=== PATIENT | female | born 1985 | race Caucasian/White ===

== ENCOUNTER 2019-08-31 17:25 | Emergency (ER) | payer OTHER ==
--- NOTE | 2019-08-31 18:50 | RAD REPORT ---
EXAM DESCRIPTION: Joaquin Single View08/31/2019 6:40 pm CLINICAL HISTORY: Chest pain COMPARISON: none FINDINGS: The lungs appear clear of acute infiltrate. The heart is normal size IMPRESSION: No acute abnormalities displayed
[2019-08-31 19:26] LABS: Absolute Lymphocytes (CBC) 2.7 K/uL (0.7-4.9); Basophils % 0.8 % (0-1.3); Hematocrit 39.3 % (36.0-45.0); Lymphocytes % 33.9 % (15.3-44.8); MPV 11.5 fL (7.6-11.3); RBC Red Blood Cell Count 4.34 M/uL (3.86-4.86)
[2019-08-31 19:35] LABS: Protime INR 1.01
[2019-08-31 20:05] LABS: ALT/SGPT 20 U/L (12-78); AST/SGOT 18 U/L (15-37); Albumin 3.9 g/dL (3.4-5.0); Alkaline Phosphatase 38 U/L (45-117); BUN Blood Urea Nitrogen 9 mg/dL (7-18); Bicarbonate 24 mmol/L (21-32); Bilirubin Direct 0.1 mg/dL (0-0.2); Bilirubin Total 0.3 mg/dL (0.2-1.0); Glucose Level 87 mg/dL (74-106); Magnesium 2.3 mg/dL (1.8-2.4); NT PRO-BNP 106 pg/mL (<125); Protein, Total 7.6 g/dL (6.4-8.2); Sodium Level 141 mmol/L (136-145); Troponin (Emerg Dept Use Only) < 0.02 ng/mL (0.0-0.045)
[2019-08-31 21:10] LABS: Urine Blood TRACE (NEG); Urine Glucose NEGATIVE (NEG); Urine Protein NEGATIVE (NEG); Urine Specific Gravity 1.025 (1.005-1.030)
--- NOTE | 2019-08-31 21:22 | RAD REPORT ---
EXAM DESCRIPTION: CT - Chest For Pe Angio - 08/31/2019 9:08 pm CLINICAL HISTORY: Chest pain COMPARISON: None. TECHNIQUE: Dynamically enhanced axial 3 mm thick images of the chest were obtained during administra tion of <100> mL Isovue 370 IV contrast. Coronal and oblique reconstruction images were generated and reviewed. Exam utilizes a protocol for optimal evaluation of pulmonary arterial tree. Maximum intensity projections 3D imaging was utilized All CT scans are performed using dose optimization technique as appropriate and may include automated exposure control or mA/KV adjustment according to patient size. FINDINGS: A pulmonary embolus is not seen. A thoracic aortic aneurysm is not noted. Bovine aortic A pleural effusion is not seen. A pericardial effusion is not seen. A lung consolidation is not present. IMPRESSION: Negative for a pulmonary embolism.
--- NOTE | 2019-08-31 21:27 | ER ---
Nurse's Notes [facility] Name: Chata Nick Age: 33 yrs Sex: Female : 1985 Arrival Date: 08/31/2019 Time: 17:29 Bed 2 Private MD: Diagnosis: Chest pain, unspecified;Cardiac murmur, unspecified Presentation: 08/30 17:41 Chief complaint: Patient states: Chest tightness since Wednesday. Started with Sore ca1 throat, was on Amox. Went to see Dr. Purcell, on Z-pac x 3 days now. Throat feels better but still having CP with numbness on all upper and lower extremities, but more on the R leg. Coronavirus screen: Patient denies a cough. Patient denies shortness of breath or difficulty breathing. Patient denies measured and/or subjective temperature greater than 100.4F prior to today's visit. Patient denies travel on a cruise ship or to a country the [facility] currently lists as an affected area. Patient denies contact with known and/or suspected case of COVID-19. Proceed with normal triage. Ebola Screen: Patient negative for fever greater than or equal to 101.5 degrees Fahrenheit, and additional compatible Ebola Virus Disease symptoms Patient denies exposure to infectious person. Patient denies travel to an Ebola-affected area in the 21 days before illness onset. No symptoms or risks identified at this time. Initial Sepsis Screen: Does the patient meet any 2 criteria? No. Patient's initial sepsis screen is negative. Does the patient have a suspected source of infection? No. Patient's initial sepsis screen is negative. Risk Assessment: Do you want to hurt yourself or someone else? Patient reports no desire to harm self or others. Onset of symptoms was August 31, 2019. 17:41 Method Of Arrival: Ambulatory ca1 17:41 Acuity: PRATIK 3 ca1 Triage Assessment: 17:47 General: Appears in no apparent distress. comfortable, slender, Behavior is bp cooperative, appropriate for age, anxious. Pain: Complains of pain in chest. EENT: No deficits noted. Neuro: No deficits noted. Cardiovascular: Rhythm is sinus rhythm. Respiratory: No deficits noted. GI: No signs and/or symptoms were reported involving the gastrointestinal system. : No signs and/or symptoms were reported regarding the genitourinary system. Derm: No deficits noted. Musculoskeletal: No deficits noted. 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 - Social history:: Smoking status: Patient denies any tobacco usage or history of. Screenin:48 Abuse screen: Denies threats or abuse. Denies injuries from another. Nutritional bp screening: No deficits noted. Tuberculosis screening: No symptoms or risk factors identified. Fall Risk None identified. Assessment: 17:48 General: SEE TRIAGE NOTE. bp 20:04 General: Appears in no apparent distress. comfortable, Behavior is calm, cooperative, jd3 appropriate for age. Pain: Complains of pain in chest Quality of pain is described as pressure. Neuro: Level of Consciousness is awake, alert, obeys commands, Oriented to person, place, time, situation. Cardiovascular: Heart tones S1 S2 present Capillary refill < 3 seconds Patient's skin is warm and dry. Respiratory: Airway is patent Respiratory effort is even, unlabored, Respiratory pattern is regular, symmetrical, Denies cough, shortness of breath. GI: No signs and/or symptoms were reported involving the gastrointestinal system. Patient currently denies nausea, vomiting. : No signs and/or symptoms were reported regarding the genitourinary system. EENT: No signs and/or symptoms were reported regarding the EENT system. Derm: Skin is intact, Skin is dry, Skin is normal, Skin temperature is warm. Musculoskeletal: Circulation, motion, and sensation intact. Range of motion: intact in all extremities. 20:53 Reassessment: Patient appears in no apparent distress at this time. Patient and/or jd3 family updated on plan of care and expected duration. Pain level reassessed. Patient is alert, oriented x 3, equal unlabored respirations, skin warm/dry/pink. awaiting CT. 21:42 Reassessment: Patient appears in no apparent distress at this time. Patient and/or jd3 family updated on plan of care and expected duration. Pain level reassessed. Patient is alert, oriented x 3, equal unlabored respirations, skin warm/dry/pink. reported understanding of discharge instructions even and steady gait upon discharge. Vital Signs: 17:41 BP 108 / 81; Pulse 88; Resp 15 S; Temp 97.6(TE); Pulse Ox 100% on R/A; Weight 63.5 kg ca1 (R); Height 5 ft. 5 in. (165.10 cm) (R); 20:06 BP 124 / 82; Pulse 63; Resp 15 S; Pulse Ox 100% on R/A; jd3 20:53 BP 118 / 81; Pulse 68; Resp 16 S; Pulse Ox 100% on R/A; jd3 17:41 Body Mass Index 23.30 (63.50 kg, 165.10 cm) ca1 ED Course: 17:29 Patient arrived in ED. bp1 17:44 Triage completed. ca1 17:45 Arm band placed on right wrist. ca1 17:46 Camacho Hess, RN is Primary Nurse. bp 17:48 Patient has correct armband on for positive identification. Bed in low position. Call bp light in reach. Side rails up X2. ordering machine operator on. Pulse ox on. NIBP on. 18:06 Morales Pedraza PA is PHCP. jr8 18:06 Giovanny Grande MD is Attending Physician. jr8 18:41 XRAY Chest (1 view) In Process Unspecified. EDMS 18:43 EKG done, by ED staff, reviewed by Morales FRAGOSO. dh3 19:15 Inserted saline lock: 20 gauge in right antecubital area, using aseptic technique. oe Blood collected. 19:56 Notified Nurse Practitioner and/or Physician Rn Dialysis of a critical lab result(s), D fc Dimer of 557. 20:07 Patient maintains SpO2 saturation greater than 95% on room air. jd3 20:42 Radiology exam delayed due to test not completed at this time. vm2 21:08 CT Chest For PE Angio In Process Unspecified. EDMS 21:26 Juanjo Morris MD is Referral Physician. jr8 21:42 No provider procedures requiring assistance completed. IV discontinued, intact, jd3 bleeding controlled, No redness/swelling at site. Pressure dressing applied. Administered Medications: No medications were administered Outcome: 21:26 Discharge ordered by . jr8 21:43 Discharged to home ambulatory, with family. jd3 21:43 Condition: stable 21:43 Discharge instructions given to patient, Instructed on discharge instructions, follow up and referral plans. medication usage, Demonstrated understanding of instructions, follow-up care, medications, Prescriptions given X 1. 21:44 Patient left the ED. jd3 Signatures: Dispatcher [employer] EDMS Kylie Garrett, RN RN Morales Pedraza PA PA jr8 Brad Rodriguez Marleen Collado 2 Nichol Meek 3 Meir Nieves RN RN jCamacho Schaefer RN RN AcWhitley medeiros RN RN [facility] Fabiola Handley bp1 Corrections: (The following items were deleted from the chart) 20:57 20:53 Reassessment: Patient appears in no apparent distress at this time. Patient jd3 and/or family updated on plan of care and expected duration. Pain level reassessed. Patient is alert, oriented x 3, equal unlabored respirations, skin warm/dry/pink. jd3 21:43 21:42 Reassessment: Patient appears in no apparent distress at this time. Patient jd3 and/or family updated on plan of care and expected duration. Pain level reassessed. Patient is alert, oriented x 3, equal unlabored respirations, skin warm/dry/pink. even and steady gait upon discharge jd3
--- NOTE | 2019-08-31 21:27 | EDPHYS ---
Physician Documentation [facility] Name: Chata Nick Age: 33 yrs Sex: Female : 1985 Arrival Date: 08/31/2019 Time: 17:29 Bed 2 Private MD: ED Physician Giovanny Grande HPI: 08/30 19:20 This 33 yrs old Female presents to ER via Ambulatory with complaints of Sent jr8 by , Chest Tightness, Tingly Limbs. 19:20 The patient or guardian reports chest pain that is located primarily in the substernal jr8 area. The pain does not radiate. Associated signs and symptoms: Pertinent positives: numbness and tingling to upper and lower extremities . The chest pain is described as a pressure. Duration: The patient or guardian reports a single episode, that is still ongoing, and unchanged. Modifying factors: The symptoms are alleviated by nothing. the symptoms are aggravated by nothing. Severity of pain: At its worst the pain was moderate. The patient has not experienced similar symptoms in the past. The patient has not recently seen a physician. 19:20 Patient stated that it started as sore throat. Has been on zithromax and amoxil. Feels jr8 better but has had some mild chest pressure that is not going away . 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 - Social history:: Smoking status: Patient denies any tobacco usage or history of. ROS: 19:20 Eyes: Negative for injury, pain, redness, and discharge, ENT: Negative for injury, jr8 pain, and discharge, Neck: Negative for injury, pain, and swelling, Respiratory: Negative for shortness of breath, cough, wheezing, and pleuritic chest pain, Abdomen/GI: Negative for abdominal pain, nausea, vomiting, diarrhea, and constipation, Back: Negative for injury and pain, MS/Extremity: Negative for injury and deformity, Skin: Negative for injury, rash, and discoloration, Neuro: Negative for headache, weakness, numbness, tingling, and seizure. 19:20 Cardiovascular: Positive for chest pain, Negative for edema, orthopnea, palpitations, paroxysmal nocturnal dyspnea. Exam: 19:20 Eyes: Pupils equal round and reactive to light, extra-ocular motions intact. Lids and jr8 lashes normal. Conjunctiva and sclera are non-icteric and not injected. Cornea within normal limits. Periorbital areas with no swelling, redness, or edema. ENT: Nares patent. No nasal discharge, no septal abnormalities noted. Tympanic membranes are normal and external auditory canals are clear. Oropharynx with no redness, swelling, or masses, exudates, or evidence of obstruction, uvula midline. Mucous membranes moist. Neck: Trachea midline, no thyromegaly or masses palpated, and no cervical lymphadenopathy. Supple, full range of motion without nuchal rigidity, or vertebral point tenderness. No Meningismus. Cardiovascular: Regular rate and rhythm with a normal S1 and S2. Grade 2 systolic murmur present best heard over aortic region. Normal PMI, no JVD. No pulse deficits. Respiratory: Lungs have equal breath sounds bilaterally, clear to auscultation and percussion. No rales, rhonchi or wheezes noted. No increased work of breathing, no retractions or nasal flaring. Abdomen/GI: Soft, non-tender, with normal bowel sounds. No distension or tympany. No guarding or rebound. No evidence of tenderness throughout. Back: No spinal tenderness. No costovertebral tenderness. Full range of motion. Skin: Warm, dry with normal turgor. Normal color with no rashes, no lesions, and no evidence of cellulitis. MS/ Extremity: Pulses equal, no cyanosis. Neurovascular intact. Full, normal range of motion. Neuro: Awake and alert, GCS 15, oriented to person, place, time, and situation. Cranial nerves II-XII grossly intact. Motor strength 5/5 in all extremities. Sensory grossly intact. Cerebellar exam normal. Normal gait. Vital Signs: 17:41 BP 108 / 81; Pulse 88; Resp 15 S; Temp 97.6(TE); Pulse Ox 100% on R/A; Weight 63.5 kg ca1 (R); Height 5 ft. 5 in. (165.10 cm) (R); 20:06 BP 124 / 82; Pulse 63; Resp 15 S; Pulse Ox 100% on R/A; jd3 20:53 BP 118 / 81; Pulse 68; Resp 16 S; Pulse Ox 100% on R/A; jd3 17:41 Body Mass Index 23.30 (63.50 kg, 165.10 cm) ca1 MDM: 18:06 Patient medically screened. jr8 19:20 Data reviewed: vital signs, nurses notes, lab test result(s), EKG, radiologic studies, jr8 plain films. Data interpreted: Pulse oximetry: on room air is 100 %. Interpretation: normal. Counseling: I had a detailed discussion with the patient and/or guardian regarding: the historical points, exam findings, and any diagnostic results supporting the discharge/admit diagnosis, lab results, radiology results, the need for outpatient follow up, a carpenter repair, a family practitioner, to return to the emergency department if symptoms worsen or persist or if there are any questions or concerns that arise at home. 21:25 Differential diagnosis: abnormal EKG, acute myocardial infarction, acute pericarditis, jr8 anxiety, chest wall pain, cholecystitis, Cholelithiasis costochondritis, esophagitis, gastritis, gastroesophageal reflux disease (GERD), peptic ulcer disease, pleurisy, pneumonia, pneumothorax, pulmonary embolus, stable angina, thoracic aortic disection, unstable angina. ED course: No acute findings on CT, plain film, ECG, or labs. Most likely benign chest pain. Small murmur present. Will having her f/u with cardiology. Knows to come back if worse . 08/30 18:24 Order name: Basic Metabolic Panel [facility] 08/30 18:24 Order name: CBC with Diff; Complete Time: 19:56 [facility] 08/30 18:24 Order name: LFT's; Complete Time: 20:36 [facility] 08/30 18:24 Order name: Magnesium; Complete Time: 20:36 [facility] 08/30 18:24 Order name: NT PRO-BNP; Complete Time: 20:36 [facility] 08/30 18:24 Order name: PT-INR; Complete Time: 20:36 [facility] 08/30 18:24 Order name: Troponin (emerg Dept Use Only); Complete Time: 20:36 [facility] 08/30 18:24 Order name: XRAY Chest (1 view); Complete Time: 19:08 [facility] 08/30 18:24 Order name: EKG; Complete Time: 18:25 [facility] 08/30 18:24 Order name: DD; Complete Time: 20:36 [facility] 08/30 18:25 Order name: Basic Metabolic Panel; Complete Time: 20:36 [facility] 08/30 20:36 Order name: CT Chest For PE Angio; Complete Time: 21:25 [facility] 08/30 20:54 Order name: Urine --Ancillary (enter results); Complete Time: 21:25 tt3 08/30 20:54 Order name: Urine Dipstick--Ancillary (enter results); Complete Time: 21:25 tt3 08/30 18:24 Order name: Cardiac monitoring; Complete Time: 18:50 [facility] 08/30 18:24 Order name: EKG - Nurse/Tech; Complete Time: 18:50 [facility] 08/30 18:24 Order name: IV Saline Lock; Complete Time: 20:08 [facility] 08/30 18:24 Order name: Labs collected and sent; Complete Time: 20:08 [facility] 08/30 18:24 Order name: O2 Per Protocol; Complete Time: 18:27 [facility] 08/30 18:24 Order name: O2 Sat Monitoring; Complete Time: 18:27 [facility] 08/30 20:42 Order name: Urine Dipstick-Ancillary (obtain specimen); Complete Time: 20:53 jd3 08/30 20:42 Order name: Urine Test (obtain specimen); Complete Time: 20:53 jd3 Administered Medications: No medications were administered Disposition: 08/31/19 21:26 Discharged to Home. Impression: Chest pain, unspecified, Cardiac murmur, unspecified. - Condition is Stable. - Discharge Instructions: Nonspecific Chest Pain, Heart Murmur. - Prescriptions for Ibuprofen 800 mg Oral Tablet - take 1 tablet by ORAL route every 12 hours As needed take with food; 20 tablet. - Medication Reconciliation Form, Thank You Letter, Antibiotic Education, Prescription Opioid Use form. - Follow up: Juanjo Morris MD; When: 2 - 3 days; Reason: Recheck today's complaints, Continuance of care, Re-evaluation by your physician. - Problem is new. - Symptoms have improved. Addendum: 09/04/2019 07:28 Co-signature as Attending Physician, Giovanny Grande MD. r n Signatures: Dispatcher MedHoGiovanny Gandhi MD MD rn Roszak, Josh, PA PA jr8 Meir Nieves RN RN jd3 Whitley Lange RN RN ca1 Corrections: (The following items were deleted from the chart) 08/30 21:44 21:26 08/31/2019 21:26 Discharged to Home. Impression: Chest pain, unspecified; Cardiac jd3 murmur, unspecified. Condition is Stable. Forms are Medication Reconciliation Form, Thank You Letter, Antibiotic Education, Prescription Opioid Use. Follow up: Juanjo Morris; When: 2 - 3 days; Reason: Recheck today's complaints, Continuance of care, Re-evaluation by your physician. Problem is new. Symptoms have improved. jr8
[2019-08-31 22:49] VITALS: TEMP 97.6; O2SAT 100
[2019-08-31 22:51] VITALS: BP 118/81
--- NOTE | 2019-09-01 06:46 | EKG ---
Test Date: 2019-08-31 Test Time: 18:43:41 Recruitment Assistant: MORGAN MEASUREMENT RESULTS: Intervals: Rate: 66 TN: 152 QRSD: 104 QT: 378 QTc: 396 [place]: P: 32 TN: 152 QRS: 56 T: 24 INTERPRETIVE STATEMENTS: Normal sinus rhythm Incomplete right bundle branch block Borderline ECG No previous ECG available for comparison Electronically Signed On 09-01-19 06:45:35 CDT by Juanjo Morris
== END 2019-08-31 21:44 | disposition home or self-care (01) ==
LOC: ER 17:25
DX: R01.1 Cardiac murmur, unspecified (principal)
CPT/HCPCS: 93005; 85025; 80048; 36415; 83735; 81025; 85610; 85379; 80076; 81003; 84484; 83880; 71275; 71045; 99285; Q9967

== ENCOUNTER 2020-11-29 09:38 | Day surgery (SDC) | payer BC ==
[2020-11-28 14:26] LABS: Absolute Lymphocytes (CBC) 3.1 K/uL (0.7-4.9); Basophils % 0.6 % (0-1.3); Lymphocytes % 31.4 % (15.3-44.8); MPV 10.5 fL (7.6-11.3); RBC Red Blood Cell Count 4.33 M/uL (3.86-4.86)
[2020-11-28 14:33] LABS: Protime INR 1.06
[2020-11-28 14:41] LABS: BUN Blood Urea Nitrogen 7 mg/dL (7-18); Bicarbonate 30 mmol/L (21-32); Glucose Level 87 mg/dL (74-106); Potassium 3.1 mmol/L (3.5-5.1); Sodium Level 141 mmol/L (136-145)
--- NOTE | 2020-11-28 15:04 | RAD REPORT ---
EXAM DESCRIPTION: RAD - Chest Pa And Lat (2 Views) - 11/28/2020 2:47 pm CLINICAL HISTORY: PREOP Chest pain. COMPARISON: Chest Single View dated 08/31/2019 FINDINGS: The lungs are clear. The heart is normal in size. No displaced fractures. IMPRESSION: No acute or concerning finding suspected.
[2020-11-29 10:00] VITALS: TEMP 97.7
[2020-11-29] MEDS ORDERED: NA CHLORIDE 0.9% 500 ML ONE (10:08)
[2020-11-29] MEDS ORDERED: HEPA 1000U/500MLS 1,000 UNIT/500 ML BAG IV ONE (10:08)
[2020-11-29] MEDS ORDERED: LIDOCAINE 1% MPF 5 ML VIAL ONE (11:37)
[2020-11-29] MEDS ORDERED: MIDAZOLAM HCL 2 MG/2 ML INJ ONE (11:49)
[2020-11-29] MEDS ORDERED: FENTANYL CITR 100 MCG/2 ML ONE (11:49)
[2020-11-29 13:06] VITALS: BP 104/66; O2SAT 100
--- NOTE | 2020-11-30 14:23 | OP ---
Date of Procedure: 11/29/2020 Surgeon: Juanjo Morris MD Networking Technology Instructor: Mr. Fuller. The patient will remain in the hospital for 2 hours of bedrest after the procedure and she will go ho me after that. I will see her in the office in the next week or 2. Procedures: Left heart catheterization, selective coronary arteriogram. Indication: Chest pain, abnormal stress test, and abnormal nuclear stress test. Procedure In Detail: Ms. 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 A 6-Angolan sheath intro duced in the right common femoral artery successfully. Angiography there was normal. Angio-Seal was used to close the case. Cleopatra catheters were used to cannulate the left main and the right main. The right coronary artery was normal. Her left main had a very high takeoff from the left coronary cusp. It was very hard to cannulate it with a 3.5 or a 4.0 JL4. Angiography, however, was adequate and showed fairly small vessel for her age, otherwise normal coronary arteries. The patient tolerate d the procedure well. Blood Loss: 5 mL. Anesthesia: Total conscious sedation was 30 minutes. Final Diagnoses: Chest pain, positive stress test, normal coronaries, very high takeoff of the left main. 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 Plan: To continue medical therapy. If she continues to have the chest pain, I would consider cardia c MRI or a chest CT with angiography possibly to rule out anomalous takeoff of the coronaries on the left side. RENETTA/RACHEALL Voice ID: [id number] Report ID: [id number]
== END 2020-11-29 13:31 | disposition home or self-care (01) ==
LOC: CCL 09:38
DX: R94.39 Abnormal result of other cardiovascular function study (principal); R07.89 Other chest pain; F34.1 Dysthymic disorder; Z20.822 Contact with and (suspected) exposure to COVID-19; Z82.49 Family history of ischemic heart disease and other diseases of the circulatory system
CPT/HCPCS: 85025; 80048; 36415; 84703; 85610; 85730; 71046; 93454; U0003; C1893; C1760; J2250; J3010; J7040; J1644